=== PATIENT | male | born 1930 | race Caucasian/White ===

== ENCOUNTER 2017-10-31 12:34 | Inpatient (IN) ==
[2017-10-31] MEDS ORDERED: Tetanus/Diphtheria Toxoid Adult Vaccine Inj 0.5 ML Vial IM ONE (12:53)
[2017-10-31 13:33] LABS: Baso % (Auto) 0.3 % (0.0-2.0); Eos # (Auto) 0.1 th/mm3 (0.0-0.4); Eos % (Auto) 1.4 % (0.0-4.0); Hematocrit 34.3 % (39.0-51.0); Lymph # (Auto) 2.2 th/mm3 (1.0-4.8); Lymph % (Auto) 22.8 % (9.0-44.0); Mean Corpuscular HGB Conc 32.2 % (32.0-36.0); Mean Corpuscular Hemoglobin 21.6 pg (27.0-34.0); Mean Corpuscular Volume 67.1 fL (80.0-100.0); Mean Platelet Volume 9.1 fL (7.0-11.0); Mono # (Auto) 0.6 th/mm3 (0.0-0.9); Mono % (Auto) 6.6 % (0.0-8.0); Neut # (Auto) 6.6 th/mm3 (1.8-7.7); Neut % (Auto) 68.9 % (16.0-70.0); Platelet Count 195 th/mm3 (150-450); Red Blood Count 5.12 mil/mm3 (4.50-5.90); Red Cell Distribution Width 15.7 % (11.6-17.2); White Blood Count 9.5 th/mm3 (4.0-11.0)
[2017-10-31 13:48] LABS: Calcium 9.1 mg/dL (8.5-10.1); Carbon Dioxide 22.5 meq/L (21.0-32.0); Potassium 4.2 meq/L (3.5-5.1)
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
[2017-10-31 13:52] LABS: Activated Partial Thrombo Time 23.3 sec (24.3-30.1); INR 1.1 Ratio; Prothrombin Time 10.7 sec (9.8-11.6)
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
[2017-10-31] MEDS ORDERED: Morphine Inj 4 MG/ML Vial IV.PUSH ONE (14:34)
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
[2017-10-31] MEDS ORDERED: Naloxone Inj 0.4 MG/ML Vial IV.PUSH PRN (18:13)
[2017-10-31] MEDS ORDERED: Bisacodyl 10 MG Supp RECTAL PRN (18:13)
[2017-10-31] MEDS ORDERED: Post-op Orders (for Pharmacy) OTHER ONE (18:13)
[2017-10-31] MEDS ORDERED: Morphine Inj 4 MG/ML Vial IV.PUSH PRN (20:00)
[2017-10-31] MEDS: Sod Chloride 0.9% Inj 1,000 ML IV.CONT SCH (21:04)
[2017-10-31] MEDS: Senna/Docusate Sodium 8.6/50 MG Tablet PO SCH (21:05)
[2017-10-31] MEDS: Famotidine PF Inj 20 MG/2 ML Vial IV.PUSH SCH (21:05)
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
[2017-11-01 00:51] LABS: ABG Base Excess -2.6 mmol/L (-2-2); ABG PCO2 35 mmHg (38-42); ABG PO2 249 mmHg (61-120)
[2017-11-01 01:04] LABS: Baso % (Auto) 0.4 % (0.0-2.0); Eos # (Auto) 0.1 th/mm3 (0.0-0.4); Eos % (Auto) 1.4 % (0.0-4.0); Hemoglobin 8.1 gm/dL (13.0-17.0); Lymph % (Auto) 37.1 % (9.0-44.0); Mean Corpuscular HGB Conc 32.3 % (32.0-36.0); Mean Corpuscular Hemoglobin 21.9 pg (27.0-34.0); Mono # (Auto) 0.7 th/mm3 (0.0-0.9); Mono % (Auto) 6.8 % (0.0-8.0); Neut # (Auto) 5.8 th/mm3 (1.8-7.7); Neut % (Auto) 54.3 % (16.0-70.0); Platelet Count 52 th/mm3 (150-450); Red Blood Count 3.67 mil/mm3 (4.50-5.90); Red Cell Distribution Width 15.6 % (11.6-17.2); White Blood Count 10.7 th/mm3 (4.0-11.0)
[2017-11-01 01:15] LABS: Activated Partial Thrombo Time 39.7 sec (24.3-30.1); INR 1.4 Ratio; Prothrombin Time 14.3 sec (9.8-11.6)
[2017-11-01 01:24] LABS: Albumin 2.7 g/dL (3.4-5.0); Calcium 6.5 mg/dL (8.5-10.1); Carbon Dioxide 23.5 meq/L (21.0-32.0); Troponin I 0.02 ng/mL (0.02-0.05)
[2017-11-01 01:25] LABS: Potassium 4.8 meq/L (3.5-5.1)
[2017-11-01 01:44] LABS: Ovalocytes 1+
[2017-11-01 01:47] LABS: Acanthocytes Occ
[2017-11-01] MEDS ORDERED: Atropine Inj 1 MG/10 ML Syringe IV.PUSH ONE (05:00)
[2017-11-01] MEDS ORDERED: Dextrose 50% in Water 50 ML Vial IV.PUSH PRN (07:52)
[2017-11-01] MEDS: Famotidine PF Inj 20 MG/2 ML Vial IV.PUSH SCH ×2 (08:40→22:52)
[2017-11-01] MEDS: Ferrous Sulfate 325 MG Tablet PO SCH (08:41)
[2017-11-01] MEDS ORDERED: Metoprolol Tartrate 25 MG Tablet PO SCH (09:00)
[2017-11-01] MEDS: Sod Chloride 0.9% Inj 1,000 ML IV.CONT SCH (12:24)
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
[2017-11-01 15:55] LABS: Hematocrit 24.1 % (39.0-51.0); Hemoglobin 7.7 gm/dL (13.0-17.0); Mean Corpuscular Hemoglobin 21.6 pg (27.0-34.0); Mean Corpuscular Volume 67.6 fL (80.0-100.0); Mean Platelet Volume 9.5 fL (7.0-11.0); Platelet Count 164 th/mm3 (150-450); Red Blood Count 3.56 mil/mm3 (4.50-5.90); White Blood Count 6.9 th/mm3 (4.0-11.0)
--- NOTE | 2017-11-01 16:25 | MB ---
cc: Gianni Hewitt MD DATE: 11/01/2017 REASON FOR CONSULTATION: Evaluation of murmur and episode of bradycardia. HISTORY OF PRESENT ILLNESS: Richard Brink is an 87-year-old man who says his primary care physician is Dr. Dodd. I think he is [facility] and I contacted the staff comparative sociology professor who recommended I go ahead and see the patient. The patient had an episode this morning where they called a CODE 99. He had a drop in heart rate of 42 with drop in blood pressure to 83 and a drop in saturation of 86%. He quickly recovered after administration of oxygen and 1 dose of atropine. He has had no further episodes. The patient denies any anginal chest pain. The patient gets a pinch in the left chest lasting 20 seconds. It does not happen very often. He denies any shortness of breath or angina. He is physically quite sedentary. He does not do much walking. His back bothers him some. He has had previous back surgery a couple years ago. He has several cardiac risk factors including elevated cholesterol, diabetes, and hypertension. Denies known family history of coronary artery disease. SOCIAL HISTORY: He moved here from [place] in his 20s. 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 He is with 2 sons, 1 of 2 children, a son and a daughter and son is a accounting recruiter. REVIEW OF SYSTEMS: Notable for some intermittent acid reflux. No bleeding. No other problems. PAST SURGICAL HISTORY: Includes knee surgery, hernia surgery, surgery for kyphosis. ADDITIONAL PAST MEDICAL HISTORY: Asbestos exposure, hypertension, diabetes, high cholesterol. PHYSICAL EXAMINATION: GENERAL: Shows a well-developed, well-nourished man. He is alert, does not appear to be in acute distress. VITAL SIGNS: Charted. HEENT: Normocephalic. NECK: Shows no JVD. No bruits. CHEST: Clear to auscultation. CARDIOVASCULAR: Normal S1, S2. Regular rate and rhythm with an early to mid peaking aortic stenosis type murmur grade 2/6, going into the carotids. ABDOMEN: Soft. EXTREMITIES: He has some bandages from the knees down from apparently ankle and feet injuries. DATA: EKG shows sinus rhythm, right bundle branch block. No acute ST-T wave changes. Remaining labs are charted. Echo Doppler study showing LVH, mild to moderate aortic stenosis. This is similar to the previous echo. The right bundle branch block I sold similar to the old EKGs. IMPRESSION: The patient had an episode of low heart rate, low blood pressure. No saturation. I am not sure exactly what caused this episode, whether he had sleep apnea spell, whether this is reaction to the beta rakel. He is no longer demonstrating any of these signs. I think a surgical risk is elevated, but not prohibitive. I think it is reasonable to proceed if the surgery is badly needed. His LV function is preserved. Will hold the beta rakel though in view of having the bradycardia episode. Thank you very much for asking me to see this pleasant gentleman. MD YAMILETH Villegas/stacia , 02:21 PM , 02:29 PM
--- NOTE | 2017-11-01 16:44 | P.PNPOD ---
Subjective Interval history: Patient seen bedside with family present. Patient is resting comfortably, states pain is well controlled. Physical Exam Vital signs: Vital Signs 10/31/17 20:00 10/31/17 22:22 11/01/17 00:00 Temperature 97.8 F 97.6 F Pulse Rate 71 72 38 L Respiratory Rate 18 26 H Blood Pressure 159/78 H 127/59 L Pulse Oximetry 100 11/01/17 00:07 11/01/17 00:10 11/01/17 00:20 Temperature 97.2 F L Pulse Rate 59 L 81 Respiratory Rate 20 Blood Pressure 83/52 L 127/62 Pulse Oximetry 100 76 L 11/01/17 04:00 11/01/17 05:00 11/01/17 06:00 Temperature 97.8 F Pulse Rate 72 70 70 Respiratory Rate 25 H 23 22 Blood Pressure 130/59 L 118/56 L 118/56 L Pulse Oximetry 11/01/17 08:00 11/01/17 12:00 11/01/17 12:15 Temperature 98.1 F 98.1 F Pulse Rate 69 Respiratory Rate 18 18 Blood Pressure 135/60 135/68 Pulse Oximetry 96 96 97 Intake & Output 10/31/17 11/01/17 11/01/17 18:59 06:59 18:59 Intake Total 1000 / 1000 Output Total 120 / 120 Balance -120 / -120 1000 / 1000 Weight 83.915 kg 83.915 kg Intake: IV 1000 / 1000 NS Inj 1,000 ML @ 84 mls/hr IV. 1000 / 1000 CONT .[id number] [facility] Rx#:[id number] Output: Wound Drainage 120 / 120 Left Abdomen MARGY Drain 120 / 120 Other: # Voids 1 # Incontinent Voids 1 Date of Last Bowel Movement 10/31/17 10/31/17 Weight On Admission 83.915 kg Narrative: Bilateral posterior splint intact. Capillary refill time to digits 10. No reported calf pain. Medications and Allergies Active Medications: Active Medications Al Hydroxide/Mg Hydroxide (Milk Of Magnshannon Liq) 30 ml PO Q12H PRN PRN Reason: Mild Constipation Albuterol (Duoneb Neb (Prn)) 1 ampul NEB Q2HR NEB PRN PRN Reason: SHORTNESS OF BREATH/WHEEZING Bisacodyl (Dulcolax Supp) 10 mg RECTAL DAILY PRN PRN Reason: SEVERE CONSITIPATION Dextrose (D50w Vial) 50 ml IV.PUSH UNSCH PRN PRN Reason: PER HYPOGLYCEMIA PROTOCOL Famotidine (Pepcid Pf Inj) 10 mg IV.PUSH Q12HR [facility] Ferrous Sulfate (Ferosul) 325 mg PO DAILY [facility] Last Admin: 11/01/17 08:41 Dose: 325 mg Glucagon (Glucagon Inj) 1 mg OTHER PRN PRN PRN Reason: for Hypoglycemia Protocol Cefazolin Sodium 1,000 mg/ (Sodium Chloride) 100 mls @ 200 mls/hr IV.SIG 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 [facility] Sodium Chloride (Ns Inj) 1,000 mls @ 84 mls/hr IV.CONT .[id number] [facility] Last Admin: 11/01/17 12:24 Dose: 75 mls/hr Acetaminophen (Ofirmev Inj) 1,000 mg in 100 mls @ 400 mls/hr IV.SIG Q6H PRN PRN Reason: Pain 3-10 Stop: 11/02/17 05:14 Insulin Human Regular (Novolin R Correctional Sugar Inj) 0 units SQ ACHS [facility]; Protocol Lactulose (Lactulose Liq) 30 ml PO DAILY PRN PRN Reason: SEVERE CONSITIPATION Losartan Potassium (Cozaar) 100 mg PO DAILY [facility] Last Admin: 11/01/17 08:40 Dose: 100 mg Metoprolol Tartrate (Lopressor) 25 mg PO Q12HR [facility] Last Admin: 11/01/17 08:41 Dose: 25 mg Naloxone HCl (Narcan Inj) 0.4 mg IV.PUSH UNSCH PRN PRN Reason: SEE LABEL COMMENTS Ondansetron HCl (Zofran Inj) 4 mg IV.PUSH Q6H PRN PRN Reason: NAUSEA OR VOMITING Pravastatin Sodium (Pravachol) 80 mg PO [facility] Senna/Docusate Sodium (Debora-Colace) 1 tab PO BID [facility] Last Admin: 10/31/17 21:05 Dose: 1 tab Sennosides (Senokot) 17.2 mg PO Q12H PRN PRN Reason: Moderate Constipation Allergies Allergy/AdvReac Type Severity Reaction Status Date / Time No Known Allergies Allergy Unverified 10/31/17 12:59 Home Medications Medication Instructions Recorded Confirmed Type Aleve 220 mg PO 10/31/17 History ferrous sulfate 325 mg PO DAILY 10/31/17 10/31/17 History losartan 100 mg PO DAILY 10/31/17 10/31/17 History metformin 1,000 mg PO BID 10/31/17 10/31/17 History metoprolol tartrate 25 mg PO Q12HR 10/31/17 10/31/17 History simvastatin 40 mg PO HS 10/31/17 10/31/17 History Results - Labs CBC & Chem 7: 11/01/17 14:50 11/01/17 00:35 Laboratory Results - last 24 hr 10/31/17 11/01/17 11/01/17 20:33 00:12 00:35 WBC 10.7 RBC 3.67 L Hgb 8.1 L D Hct 25.0 L MCV 68.0 L MCH 21.9 L MCHC 32.3 RDW 15.6 Plt Count 52 L D MPV 9.0 Prelim Diff (Auto) Slide review pending Neut % (Auto) 54.3 Lymph % (Auto) 37.1 Gallia % (Auto) 6.8 Eos % (Auto) 1.4 Baso % (Auto) 0.4 Neut # (Auto) 5.8 Lymph # (Auto) 4.0 Gallia # (Auto) 0.7 Eos # (Auto) 0.1 Baso # (Auto) 0.0 WBC Differential . Diff Scan Auto diff confirmed Differential Comment . Platelet Estimate Low L Platelet Morphology Enlarged H Ovalocytes 1+ H Acanthocytes (Spur) Occ H PT INR APTT Puncture Site Patient Temperature O2 Saturation ABG pH ABG pCO2 ABG pO2 ABG HCO3 ABG O2 Content ABG Base Excess ABG Methemoglobin Jesus Test Hemoglobin Carboxyhemoglobin O2 Delivery Device Liter Flow Inspired O2 Critical Value Sodium Potassium Chloride Carbon Dioxide Anion Gap BUN Creatinine Estimated GFR POC Glucose 127 H 192 H Random Glucose Calcium Prot Corrected Calcium Total Bilirubin AST ALT Alkaline Phosphatase Troponin I Total Protein Albumin 11/01/17 11/01/17 11/01/17 00:35 00:35 00:38 WBC RBC Hgb Hct MCV MCH MCHC RDW Plt Count MPV Prelim Diff (Auto) Neut % (Auto) Lymph % (Auto) Gallia % (Auto) Eos % (Auto) Baso % (Auto) Neut # (Auto) Lymph # (Auto) Gall[place] # (Auto) Eos # (Auto) Baso # (Auto) WBC Differential Diff Scan Differential Comment Platelet Estimate Platelet Morphology Ovalocytes Acanthocytes (Spur) PT 14.3 H INR 1.4 APTT 39.7 H D Puncture Site Right radial Patient Temperature 98.6 O2 Saturation 97 ABG pH 7.41 ABG pCO2 35 L ABG pO2 249 H ABG HCO3 21 L ABG O2 Content 11.0 L ABG Base Excess -2.6 L ABG Methemoglobin 1.2 Jesus Test Present Hemoglobin 7.6 L Carboxyhemoglobin 1.3 O2 Delivery Device None rebreather Liter Flow 15.00 Inspired O2 100 Critical Value No Sodium 145 Potassium 4.8 Chloride 113 H Carbon Dioxide 23.5 Anion Gap 9 BUN 23 H Creatinine 1.28 Estimated GFR 53 L POC Glucose Random Glucose 163 H Calcium 6.5 L* D Prot Corrected Calcium 7.5 L Total Bilirubin 0.9 AST 34 ALT 15 Alkaline Phosphatase 46 Troponin I 0.02 Total Protein 5.0 L Albumin 2.7 L 11/01/17 11/01/17 09:42 14:50 WBC 6.9 RBC 3.56 L Hgb 7.7 L Hct 24.1 L MCV 67.6 L MCH 21.6 L MCHC 32.0 RDW 16.0 Plt Count 164 D MPV 9.5 Prelim Diff (Auto) Neut % (Auto) Lymph % (Auto) Gall[place] % (Auto) Eos % (Auto) Baso % (Auto) Neut # (Auto) Lymph # (Auto) Gall[place] # (Auto) Eos # (Auto) Baso # (Auto) WBC Differential Diff Scan Differential Comment Platelet Estimate Platelet Morphology Ovalocytes Acanthocytes (Spur) PT INR APTT Puncture Site Patient Temperature O2 Saturation ABG pH ABG pCO2 ABG pO2 ABG HCO3 ABG O2 Content ABG Base Excess ABG Methemoglobin Jesus Test Hemoglobin Carboxyhemoglobin O2 Delivery Device Liter Flow Inspired O2 Critical Value Sodium Potassium Chloride Carbon Dioxide Anion Gap BUN Creatinine Estimated GFR POC Glucose 164 H Random Glucose Calcium Prot Corrected Calcium Total Bilirubin AST ALT Alkaline Phosphatase Troponin I Total Protein Albumin - Imaging Impressions Ankle CT 10/31/17 00:00 CONCLUSION: 1. Mildly comminuted nondisplaced fracture through the medial malleolus. 2. Osteopenia. Assessment and Plan - Plan 87-year-old male with right foot Lisfranc fracture and left ankle medial malleolar fracture Discussed all alternatives risks benefits complications associated with open reduction internal fixation of right foot and open reduction internal fixation of left ankle with patient and family present Discussed with patient he will be nonweightbearing to bilateral lower extremity following surgery Patient would like to proceed with surgical intervention, family is in agreement To OR tomorrow for right foot Lisfranc open reduction internal fixation and left ankle medial malleolar open reduction internal fixation
[2017-11-01] MEDS: Insulin NovoLIN Regular Correctional Sugar Inj SQ SCH (17:51)
[2017-11-01] MEDS: Senna/Docusate Sodium 8.6/50 MG Tablet PO SCH (17:52)
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
[2017-11-01] MEDS ORDERED: Sodium Chlor 0.9% Inj 250 ML IV.SIG SCH (19:00)
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
--- NOTE | 2017-11-02 00:44 | ECHRPT ---
Indication: CONCLUSIONS The left ventricular systolic function is hyperdynamic with an estimated ejection fraction in the ra nge of 65- 70%. Normal left ventricular size. Moderate concentric left ventricular hypertrophy. No regional wall motion abnormalities are present. Diffuse calcification of the aortic valve. Mild aortic valve regurgitation. Moderate aortic valve stenosis. Aortic valve area is 0.9 cm. Aortic valve mean gradient is 24.5 mmHg. There is trace tricuspid valve regurgitation. The estimated pulmonary arterial pressure is 25.1 mmHg. BP: / HR: Rhythm: Sinus MEASUREMENTS (Male / Female) Normal Values Technical Quality:Fair 2D ECHO LV Diastolic Diameter PLAX 4.3 cm 4.2 - 5.9 / 3.9 - 5.3 cm LV Systolic Diameter PLAX 2.5 cm IVS Diastolic Thickness 1.6 cm 0.6 - 1.0 / 0.6 - 0.9 cm LVPW Diastolic Thickness 1.6 cm 0.6 - 1.0 / 0.6 - 0.9 cm LV Relative Wall Thickness 0.7 RV Internal Dim ED PLAX 2.7 cm LVOT Diameter 1.8 cm LA Systolic Diameter LX 3.8 cm 3.0 - 4.0 / 2.7 - 3.8 cm M-MODE Aortic Root Diameter MM 2.4 cm LA Systolic Diameter MM 3.9 cm LA Ao Ratio MM 1.6 AV Cusp Separation MM 0.9 cm DOPPLER AV Peak Velocity 363.0 cm/s AV Peak Gradient 52.7 mmHg AV Mean Gradient 24.5 mmHg AV Velocity Time Integral 59.9 cm AI Peak Velocity 329.0 cm/s AI Peak Gradient 43.3 mmHg AI Pressure Half Time 564.5 ms LVOT Peak Velocity 119.0 cm/s LVOT Peak Gradient 5.7 mmHg LVOT Velocity Time Integral 21.1 cm AV Area Cont Eq vti 0.9 cm AV Area Cont Eq pk 0.8 cm MV Area PHT 2.2 cm Mitral E Point Velocity 61.7 cm/s Mitral A Point Velocity 78.5 cm/s Mitral E to A Ratio 0.8 LV E' Lateral Velocity 4.6 cm/s Mitral E to LV E' Lateral Ratio 13.5 LV E' Septal Velocity 4.3 cm/s Mitral E to LV E' Septal Ratio 14.4 TR Peak Velocity 194.0 cm/s TR Peak Gradient 15.1 mmHg Right Atrial Pressure 10.0 mmHg Pulmonary Artery Systolic Pressu 25.1 mmHg Right Ventricular Systolic Press 25.1 mmHg FINDINGS LEFT VENTRICLE The left ventricular systolic function is hyperdynamic with an estimated ejection fraction in the ra nge of 65- 70%. Normal left ventricular size. Moderate concentric left ventricular hypertrophy. No regional wall motion abnormalities are present. RIGHT VENTRICLE Normal right ventricular size and systolic function. LEFT ATRIUM The left atrial size is normal. RIGHT ATRIUM The right atrial size is normal. ATRIAL SEPTUM Normal atrial septal thickness without atrial level shunting by limited color doppler interrogation. AORTA The aortic root and proximal ascending aorta are normal in size on limited imaging. MITRAL VALVE Structurally normal mitral valve. No mitral valve stenosis or regurgitation. AORTIC VALVE Trileaflet aortic valve. Diffuse calcification of the aortic valve. Mild aortic valve regurgitation. [id number] (at most moderate) aortic valve stenosis. Aortic valve area is 0.9 cm. Aortic valve mean gradient is 24.5 mmHg. TRICUSPID VALVE Structurally normal tricuspid valve. There is trace tricuspid valve regurgitation. The estimated pulmonary arterial pressure is 25.1 mmHg. PULMONARY VALVE No pulmonary valve regurgitation or stenosis. VESSELS The inferior vena cava is normal in size. PERICARDIUM No pericardial effusion. Gianni Hewitt MD Edited by: records administrator records administrator (Electronically Signed) Final Date:01 November 2017 14:51 Amended: 02 November 2017 00:35
[2017-11-02 05:25] LABS: Baso # (Auto) 0.1 th/mm3 (0.0-0.2); Baso % (Auto) 0.8 % (0.0-2.0); Eos # (Auto) 0.4 th/mm3 (0.0-0.4); Hematocrit 30.9 % (39.0-51.0); Hemoglobin 10.2 gm/dL (13.0-17.0); Lymph # (Auto) 1.8 th/mm3 (1.0-4.8); Lymph % (Auto) 20.4 % (9.0-44.0); Mean Corpuscular HGB Conc 33.1 % (32.0-36.0); Mean Corpuscular Hemoglobin 23.6 pg (27.0-34.0); Mean Corpuscular Volume 71.3 fL (80.0-100.0); Mean Platelet Volume 8.8 fL (7.0-11.0); Mono # (Auto) 0.7 th/mm3 (0.0-0.9); Mono % (Auto) 8.3 % (0.0-8.0); Neut # (Auto) 5.7 th/mm3 (1.8-7.7); Neut % (Auto) 65.5 % (16.0-70.0); Platelet Count 162 th/mm3 (150-450); Red Blood Count 4.34 mil/mm3 (4.50-5.90); Red Cell Distribution Width 19.9 % (11.6-17.2); White Blood Count 8.7 th/mm3 (4.0-11.0)
[2017-11-02 05:53] LABS: Calcium 8.3 mg/dL (8.5-10.1); Carbon Dioxide 24.5 meq/L (21.0-32.0); Potassium 3.8 meq/L (3.5-5.1)
[2017-11-02] MEDS: Insulin NovoLIN Regular Correctional Sugar Inj SQ SCH ×6 (07:56→21:08)
[2017-11-02] MEDS: Senna/Docusate Sodium 8.6/50 MG Tablet PO SCH ×3 (07:57→20:10)
[2017-11-02] MEDS: Sod Chloride 0.9% Inj 1,000 ML IV.CONT SCH ×2 (08:32→08:34)
[2017-11-02] MEDS: Famotidine PF Inj 20 MG/2 ML Vial IV.PUSH SCH ×2 (08:34→20:10)
[2017-11-02] MEDS: Ferrous Sulfate 325 MG Tablet PO SCH (08:34)
[2017-11-02] MEDS ORDERED: Lidocaine PF 1% Inj 5 ML Syringe INFILTRATN ONE (09:37)
[2017-11-02] MEDS ORDERED: Phenylephrine/NS 1000 MCG/10ML Syringe IV.PUSH ONE (09:37)
[2017-11-02] MEDS ORDERED: Sodium Chlor 0.9% Inj 250 ML IV.SIG ONE (09:37)
--- NOTE | 2017-11-02 09:39 | P.PNPOD ---
Subjective Interval history: Patient seen preoperatively with family present bedside. Patient and family understands planned procedure to bilateral foot. Physical Exam Vital signs: Vital Signs 11/01/17 12:00 11/01/17 12:15 11/01/17 16:00 Temperature 98.1 F 98 F Pulse Rate Respiratory Rate 18 18 Blood Pressure 135/68 147/68 H Pulse Oximetry 96 97 11/01/17 20:00 11/01/17 23:07 11/02/17 00:00 Temperature 98.8 F 98.5 F 98.2 F Pulse Rate 80 81 74 Respiratory Rate 22 18 20 Blood Pressure 153/69 H 170/77 H 165/72 H Pulse Oximetry 93 L 97 11/02/17 01:38 11/02/17 01:41 11/02/17 04:00 Temperature 98.2 F 98.0 F Pulse Rate 69 69 68 Respiratory Rate 24 22 Blood Pressure 150/67 H 150/67 H 179/79 H Pulse Oximetry 11/02/17 07:57 Temperature Pulse Rate Respiratory Rate 2 L Blood Pressure Pulse Oximetry Intake & Output 11/01/17 11/02/17 11/02/17 18:59 06:59 18:59 Intake Total 1200 / 1200 1030 / 1030 Output Total 400 / 400 200 / 200 Balance 800 / 800 830 / 830 Weight 86.9 kg Intake: IV 1000 / 1000 1000 / 1000 NS Inj 1,000 ML @ 84 mls/hr IV. 1000 / 1000 1000 / 1000 CONT .[id number] [facility] Rx#:[id number] Oral 200 / 200 30 / 30 Intake (Blood Product) Amt 0 / 0 Rbc As-3 Leukoreduced Unit 0 / 0 [id number] Rbc As-3 Leukoreduced Unit 0 / 0 [id number] Output: Urine 400 / 400 200 / 200 Other: Date of Last Bowel Movement 10/31/17 11/01/17 Narrative: Bilateral posterior splint intact. Capillary refill time to digits 10. No reported calf pain. Medications and Allergies Active Medications: Active Medications Al Hydroxide/Mg Hydroxide (Milk Of Magnshannon Liq) 30 ml PO Q12H PRN PRN Reason: Mild Constipation Albuterol (Duoneb Neb (Prn)) 1 ampul NEB Q2HR NEB PRN PRN Reason: SHORTNESS OF BREATH/WHEEZING Bisacodyl (Dulcolax Supp) 10 mg RECTAL DAILY PRN PRN Reason: SEVERE CONSITIPATION Dextrose (D50w Vial) 50 ml IV.PUSH UNSCH PRN PRN Reason: PER HYPOGLYCEMIA PROTOCOL Famotidine (Pepcid Pf Inj) 10 mg IV.PUSH Q12HR [facility] Last Admin: 11/02/17 08:34 Dose: 10 mg Ferrous Sulfate (Ferosul) 325 mg PO DAILY [facility] Last Admin: 11/02/17 08:34 Dose: Not Given Glucagon (Glucagon Inj) 1 mg OTHER PRN PRN PRN Reason: for Hypoglycemia Protocol Cefazolin Sodium 1,000 mg/ (Sodium Chloride) 100 mls @ 200 mls/hr IV.SIG BLUEPRINT DUPLICATOR [facility] Sodium Chloride (Ns Inj) 1,000 mls @ 84 mls/hr IV.CONT .[id number] [facility] Last Admin: 11/02/17 08:34 Dose: 75 mls/hr Sodium Chloride (Ns Inj) 250 mls @ 15 mls/hr IV.SIG ONCE [facility] Stop: 11/02/17 11:39 Last Admin: 11/01/17 22:53 Dose: 15 mls/hr Insulin Human Regular (Novolin R Correctional Sugar Inj) 0 units SQ ACHS [facility]; Protocol Last Admin: 11/02/17 08:32 Dose: Not Given Lactulose (Lactulose Liq) 30 ml PO DAILY PRN PRN Reason: SEVERE CONSITIPATION Losartan Potassium (Cozaar) 100 mg PO DAILY [facility] Last Admin: 11/02/17 08:33 Dose: 100 mg Metoprolol Tartrate (Lopressor) 25 mg PO Q12HR [facility] Last Admin: 11/01/17 08:41 Dose: 25 mg Naloxone HCl (Narcan Inj) 0.4 mg IV.PUSH UNSCH PRN PRN Reason: SEE LABEL COMMENTS Ondansetron HCl (Zofran Inj) 4 mg IV.PUSH Q6H PRN PRN Reason: NAUSEA OR VOMITING Pravastatin Sodium (Pravachol) 80 mg PO HS [facility] Last Admin: 11/01/17 22:53 Dose: 80 mg Senna/Docusate Sodium (Debora-Colace) 1 tab PO BID [facility] Last Admin: 11/02/17 08:34 Dose: Not Given Sennosides (Senokot) 17.2 mg PO Q12H PRN PRN Reason: Moderate Constipation Allergies Allergy/AdvReac Type Severity Reaction Status Date / Time No Known Allergies Allergy Unverified 10/31/17 12:59 Home Medications Medication Instructions Recorded Confirmed Type Aleve 220 mg PO 10/31/17 History ferrous sulfate 325 mg PO DAILY 10/31/17 10/31/17 History losartan 100 mg PO DAILY 10/31/17 10/31/17 History metformin 1,000 mg PO BID 10/31/17 10/31/17 History metoprolol tartrate 25 mg PO Q12HR 10/31/17 10/31/17 History simvastatin 40 mg PO HS 10/31/17 10/31/17 History Results - Labs CBC & Chem 7: 11/02/17 05:09 11/02/17 05:09 Laboratory Results - last 24 hr 11/01/17 11/01/17 11/01/17 09:42 14:50 17:14 WBC 6.9 RBC 3.56 L Hgb 7.7 L Hct 24.1 L MCV 67.6 L MCH 21.6 L MCHC 32.0 RDW 16.0 Plt Count 164 D MPV 9.5 Neut % (Auto) Lymph % (Auto) Gila % (Auto) Eos % (Auto) Baso % (Auto) Neut # (Auto) Lymph # (Auto) Gila # (Auto) Eos # (Auto) Baso # (Auto) WBC Differential Differential Comment Sodium Potassium Chloride Carbon Dioxide Anion Gap BUN Creatinine Estimated GFR POC Glucose 164 H 121 H Random Glucose Calcium Blood Type Blood Type Recheck Antibody Screen MTS Gel Crossmatch Bld Prod Order Comment 11/01/17 11/01/17 11/02/17 20:39 23:01 05:09 WBC 8.7 RBC 4.34 L Hgb 10.2 L D Hct 30.9 L MCV 71.3 L D MCH 23.6 L MCHC 33.1 RDW 19.9 H D Plt Count 162 MPV 8.8 Neut % (Auto) 65.5 Lymph % (Auto) 20.4 Gila % (Auto) 8.3 H Eos % (Auto) 5.0 H Baso % (Auto) 0.8 Neut # (Auto) 5.7 Lymph # (Auto) 1.8 Gila # (Auto) 0.7 Eos # (Auto) 0.4 Baso # (Auto) 0.1 WBC Differential . Differential Comment Auto diff final Sodium Potassium Chloride Carbon Dioxide Anion Gap BUN Creatinine Estimated GFR POC Glucose 208 H Random Glucose Calcium Blood Type O Positive Blood Type Recheck Antibody Screen Negative MTS Gel Crossmatch See Detail Bld Prod Order Comment 11/02/17 11/02/17 05:09 08:52 WBC RBC Hgb Hct MCV MCH MCHC RDW Plt Count MPV Neut % (Auto) Lymph % (Auto) Gila % (Auto) Eos % (Auto) Baso % (Auto) Neut # (Auto) Lymph # (Auto) Gila # (Auto) Eos # (Auto) Baso # (Auto) WBC Differential Differential Comment Sodium 144 Potassium 3.8 D Chloride 110 H Carbon Dioxide 24.5 Anion Gap 10 BUN 23 H Creatinine 1.27 Estimated GFR 54 L POC Glucose 147 H Random Glucose 134 H Calcium 8.3 L D Blood Type Blood Type Recheck Antibody Screen MTS Gel Crossmatch Bld Prod Order Comment - Imaging Impressions Chest X-Ray 11/02/17 00:00 CONCLUSION: Increased density at the left base likely related to a combination of effusion, atelectasis and/or consolidation. This was present previously. Assessment and Plan - Plan 87-year-old male with right foot Lisfranc fracture and left ankle medial malleolar fracture Discussed all alternatives risks benefits complications associated with open reduction internal fixation of right foot and open reduction internal fixation of left ankle with patient and family present Discussed with patient he will be nonweightbearing to bilateral lower extremity following surgery Patient would like to proceed with surgical intervention, family is in agreement To OR today for right foot Lisfranc open reduction internal fixation versus primary fusion of lisfrancs joint and left ankle medial malleolar open reduction internal fixation Consent signed
[2017-11-02] MEDS ORDERED: Bupivacaine PF 0.25% Inj 30 ML Vial ONE (10:15)
[2017-11-02] MEDS ORDERED: Bupivacaine PF 0.25% Inj 30 ML Vial INFILTRATN ONE (11:53)
[2017-11-02] MEDS ORDERED: fentaNYL Citrate Inj 100 MCG/2 ML Ampul ONE (12:33)
--- NOTE | 2017-11-02 12:37 | P.PCN ---
Date of procedure: 11/02/17 Pre-op diagnosis: Right foot Lisfranc fracture, left ankle medial malleolar fracture Procedure: Right foot open reduction internal fixation of Lisfranc fracture, second metatarsal base fracture Left ankle fracture open reduction internal fixation, medial malleolar fracture Anesthesia: VIVIANEA Surgeon: Ann Boudreaux Estimated blood loss (mL): 10 Pathology: none sent Condition: stable Disposition: PACU (To PACU with vital signs stable and neurovascular status intact to bilateral foot)
--- NOTE | 2017-11-02 12:37 | XR ---
EXAM DATE: 11/02/2017 12:22 PM EDT AGE/SEX: 87 years / Male INDICATIONS: ORIF left ankle. CLINICAL DATA: This is the patient's initial encounter. Patient reports that signs and symptoms have been present for 1 day and indicates a pain score of Nonresponsive. MEDICAL/SURGICAL HISTORY: . Hypertension. Diabetes mellitus type II . Inguinal hernia repair. [place]: [facility] [place] 3[place], [place]/31/2017. [facility] [place]/O [place]AST, [place]. . FINDINGS: 2 spot fluoroscopic images obtained in the operating room during a procedure demonstrates 2 oblique p artially threaded cannulated screws traversing the medial malleolus and distal tibial metaphysis. Fra cture line remains visualized anteriorly on the lateral projection. There is soft tissue swelling. CONCLUSION: Spot fluoroscopic images obtained during medial malleolus ORIF. Electronically signed by: Mio Mo MD 11/02/2017 12:36 PM EDT
[2017-11-02] MEDS ORDERED: Post-op Orders (for Pharmacy) OTHER STA (12:38)
--- NOTE | 2017-11-02 12:39 | XR ---
EXAM DATE: 11/02/2017 12:25 PM EDT AGE/SEX: 87 years / Male INDICATIONS: ORIF right foot. CLINICAL DATA: This is the patient's initial encounter. Patient reports that signs and symptoms have been present for 1 day and indicates a pain score of Nonresponsive. MEDICAL/SURGICAL HISTORY: . Hypertension. Diabetes mellitus type II. . Inguinal hernia repair . COMPARISON: [facility] – [place], FOOT COMPLETE RIGHT 3V, 10/31/2017. . FINDINGS: AP and lateral views of the right foot demonstrate a dorsal sideplate with interlocking screws paul sing the middle cuneiform and proximal second metatarsal. An oblique partially threaded cannulated sc rew traverses the medial cuneiform and proximal second and third metatarsal. There is improved alignm ent. CONCLUSION: Spot fluoroscopic images obtained during right foot ORIF, as above. Electronically signed by: Mio Mo MD 11/02/2017 12:38 PM EDT
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
[2017-11-02] MEDS ORDERED: *Enalaprilat Inj 1.25 MG/ML Vial IV.PUSH ONE (13:20)
[2017-11-02] MEDS ORDERED: Labetalol HCl Inj 100 MG/20 ML Vial ONE (13:25)
--- NOTE | 2017-11-02 13:48 | XR ---
EXAM DATE: 11/02/2017 1:42 PM EDT AGE/SEX: 87 years / Male INDICATIONS: Right foot post surgery CLINICAL DATA: This is the patient's subsequent encounter. Patient reports that signs and symptoms h ave been present for 2 days and indicates a pain score of Nonresponsive. MEDICAL/SURGICAL HISTORY: . Hypertension. Diabetes mellitus type II. . Inguinal hernia repair. None. COMPAR[place]: [facility] [place], 10/31/2017. [facility] [place]OT [place] RIGHT 2V, 8. [facility] [place] COM[place]TE RIGHT 3V, 10/31/2017. . FINDINGS: 4 views of the right foot following ORIF and splinting demonstrates a dorsal sideplate with interlock ing screws traversing the second tarsometatarsal joint and an oblique partially threaded cannulated s crew traversing the medial cuneiform and second metatarsal proximally. There is soft tissue swelling posteriorly. Improved anatomic alignment is present compared to the preoperative examination. No unex pected radiopaque foreign body is identified. CONCLUSION: Improved alignment following ORIF of the right foot, as above. Electronically signed by: Mio Mo MD 11/02/2017 1:47 PM EDT
--- NOTE | 2017-11-02 13:50 | XR ---
EXAM DATE: 11/02/2017 1:40 PM EDT AGE/SEX: 87 years / Male INDICATIONS: Right ankle post surgery CLINICAL DATA: This is the patient's subsequent encounter. Patient reports that signs and symptoms h ave been present for 2 days and indicates a pain score of Nonresponsive. MEDICAL/SURGICAL HISTORY: . Hypertension. Diabetes mellitus type II. . Inguinal hernia repair. None. COMPARISON: [facility] – [place], [place], FOOT LIMITED RIGHT 2V, 11/02/2017. . FINDINGS: Plate and screw fixation hardware noted traversing the middle cuneiform and proximal second metatarsa l. There is also an obliquely oriented compression screw traversing the medial cuneiform and proximal second and third metatarsals. Hardware appears intact. Bony structures are otherwise intact and in n ormal alignment. Joints are intact without dislocation. Osseous density is normal for age. Postsurg ical soft tissue changes. CONCLUSION: 1. Midfoot ORIF, as above. 2. No acute ankle fracture or dislocation. Electronically signed by: Tobi Adams MD 11/02/2017 1:49 PM EDT
--- NOTE | 2017-11-02 14:55 | P.PNCA ---
Subjective Interval history: No angina or SOB Physical Exam Vital signs: Vital Signs 11/01/17 16:00 11/01/17 20:00 11/01/17 23:07 Temperature 98 F 98.8 F 98.5 F Pulse Rate 80 81 Respiratory Rate 18 22 18 Blood Pressure 147/68 H 153/69 H 170/77 H Pulse Oximetry 93 L 97 11/02/17 00:00 11/02/17 01:38 11/02/17 01:41 Temperature 98.2 F 98.2 F Pulse Rate 74 69 69 Respiratory Rate 20 24 22 Blood Pressure 165/72 H 150/67 H 150/67 H Pulse Oximetry 11/02/17 04:00 11/02/17 07:57 11/02/17 12:27 Temperature 98.0 F 97.9 F Pulse Rate 68 86 Respiratory Rate 2 L 16 Blood Pressure 179/79 H 167/76 H Pulse Oximetry 96 11/02/17 12:30 11/02/17 12:45 11/02/17 13:00 Temperature Pulse Rate 84 76 80 Respiratory Rate 16 16 16 Blood Pressure 157/68 H 177/79 H 169/78 H Pulse Oximetry 94 L 95 95 11/02/17 13:15 11/02/17 13:30 Temperature Pulse Rate 76 70 Respiratory Rate 16 16 Blood Pressure 175/85 H 155/72 H Pulse Oximetry 97 98 Intake & Output 11/01/17 11/02/17 11/02/17 18:59 06:59 18:59 Intake Total 1200 / 1200 1030 / 1030 900 / 900 Output Total 400 / 400 200 / 200 10 / 10 Balance 800 / 800 830 / 830 890 / 890 Weight 86.9 kg Intake: IV 1000 / 1000 1000 / 1000 NS Inj 1,000 ML @ 84 mls/hr IV. 1000 / 1000 1000 / 1000 CONT .[id number] [facility] Rx#:[id number] Oral 200 / 200 30 / 30 Anesthesia Amount 900 / 900 Intake (Blood Product) Amt 0 / 0 Rbc As-3 Leukoreduced Unit 0 / 0 [id number] Rbc As-3 Leukoreduced Unit 0 / 0 [id number] Output: Urine 400 / 400 200 / 200 Estimated Blood Loss 10 Other: Date of Last Bowel Movement 10/31/17 11/01/17 Tele NSR alert No JVD Chest clear S1S2 RRR with mild-mod M abd soft Assessment and Plan - Assessment (1) Aortic stenosis Code(s): I35.0 - Nonrheumatic aortic (valve) stenosis Status: Acute Plan: Tolerated surgery OK. I will see prn. Please call if questions.
--- NOTE | 2017-11-02 16:18 | ECG ---
Date Performed: 11/01/2017 Time Performed: 14:20:58 PTAGE: 87 years EKG: Sinus rhythm . Right bundle branch block Inferior/lateral ST-T changes are nonspecific Abnormal ECG Since PREVIOUS TRACING , no significant change noted PREVIOUS TRACIN06/21/2015 09.19 DOCTOR: Maurice Regan Interpretating Date/Time 11/02/2017 16:17:28
[2017-11-02] MEDS: Gabapentin 300 MG Capsule PO SCH (17:48)
[2017-11-02] MEDS: Heparin - SQ 10,000 UNITS/ML Vial SQ SCH (20:10)
[2017-11-03] MEDS: Sod Chloride 0.9% Inj 1,000 ML IV.CONT SCH ×3 (02:23→21:39)
[2017-11-03] MEDS: Heparin - SQ 10,000 UNITS/ML Vial SQ SCH ×3 (06:00→21:18)
[2017-11-03 06:06] LABS: Baso % (Auto) 0.3 % (0.0-2.0); Eos # (Auto) 0.4 th/mm3 (0.0-0.4); Eos % (Auto) 4.1 % (0.0-4.0); Hematocrit 25.3 % (39.0-51.0); Hemoglobin 8.6 gm/dL (13.0-17.0); Lymph # (Auto) 1.5 th/mm3 (1.0-4.8); Lymph % (Auto) 17.5 % (9.0-44.0); Mean Corpuscular HGB Conc 33.7 % (32.0-36.0); Mean Corpuscular Hemoglobin 24.3 pg (27.0-34.0); Mean Platelet Volume 8.7 fL (7.0-11.0); Mono # (Auto) 0.8 th/mm3 (0.0-0.9); Mono % (Auto) 9.2 % (0.0-8.0); Neut # (Auto) 6.1 th/mm3 (1.8-7.7); Neut % (Auto) 68.9 % (16.0-70.0); Platelet Count 147 th/mm3 (150-450); Red Blood Count 3.52 mil/mm3 (4.50-5.90); Red Cell Distribution Width 18.9 % (11.6-17.2); White Blood Count 8.8 th/mm3 (4.0-11.0)
[2017-11-03 06:18] LABS: Calcium 8.1 mg/dL (8.5-10.1); Carbon Dioxide 24.8 meq/L (21.0-32.0); Potassium 3.9 meq/L (3.5-5.1)
--- NOTE | 2017-11-03 08:50 | P.PNPOD ---
Subjective Interval history: Currently the patient is having mild right foot pain no acute distress seen bedside with family Physical Exam Vital signs: Vital Signs 11/02/17 09:00 11/02/17 12:27 11/02/17 12:30 Temperature 97.9 F Pulse Rate 75 86 84 Respiratory Rate 16 16 Blood Pressure 167/76 H 157/68 H Pulse Oximetry 96 94 L 11/02/17 12:45 11/02/17 13:00 11/02/17 13:15 Temperature Pulse Rate 76 80 76 Respiratory Rate 16 16 16 Blood Pressure 177/79 H 169/78 H 175/85 H Pulse Oximetry 95 95 97 11/02/17 13:30 11/02/17 16:00 11/02/17 20:00 Temperature 98.5 F 97.9 F Pulse Rate 70 68 78 Respiratory Rate 16 20 28 H Blood Pressure 155/72 H 127/58 L 147/68 H Pulse Oximetry 98 100 99 11/03/17 00:00 11/03/17 04:00 11/03/17 04:06 Temperature 98.5 F 100.1 F H Pulse Rate 74 92 H Respiratory Rate 34 H 26 H 22 Blood Pressure 152/72 H 140/61 Pulse Oximetry 97 95 Intake & Output 11/02/17 11/03/17 11/03/17 18:59 06:59 18:59 Intake Total 1240 / 1240 1290 / 1290 350 / 350 Output Total 860 / 860 425 / 425 Balance 380 / 380 865 / 865 350 / 350 Weight 87.7 kg Intake: IV 100 / 100 1050 / 1050 350 / 350 NS Inj 1,000 ML @ 84 mls/hr IV. 950 / 950 CONT .[id number] [facility] Rx#:[id number] Ofirmev Inj 1,000 mg In 100 ml 100 / 100 100 / 100 @ 400 mls/hr IV.SIG Q6H PRN Rx# :[id number] Oral 240 / 240 240 / 240 Anesthesia Amount 900 / 900 Output: Urine 425 / 425 Estimated Blood Loss 10 / 10 Urine Amount (Catheter) 850 / 850 Condom 850 / 850 Other: Date of Last Bowel Movement 11/01/17 # Bowel Movements 0 0 Narrative: Bilateral lower extremities are within splints no strikethrough bandage noted left or right Right lower extremity takedown of bandage reveals fracture blister of the dorsal distal foot with intact incisional wound VAC good range of motion of digits soft tissue appears to be edematous however no signs of ischemia good alignment of right foot. Left lower extremity good range of motion of digits sensation intact splint intact. Medications and Allergies Active Medications: Active Medications Al Hydroxide/Mg Hydroxide (Milk Of Magnesia Liq) 30 ml PO Q12H PRN PRN Reason: Mild Constipation Albuterol (Duoneb Neb (Prn)) 1 ampul NEB Q2HR NEB PRN PRN Reason: SHORTNESS OF BREATH/WHEEZING Bisacodyl (Dulcolax Supp) 10 mg RECTAL DAILY PRN PRN Reason: SEVERE CONSITIPATION Dextrose (D50w Vial) 50 ml IV.PUSH UNSCH PRN PRN Reason: PER HYPOGLYCEMIA PROTOCOL Diphenhydramine HCl (Benadryl) 25 mg PO Q6H PRN PRN Reason: ITCHING Famotidine (Pepcid Pf Inj) 10 mg IV.PUSH Q12HR [facility] Last Admin: 11/02/17 20:10 Dose: 10 mg Ferrous Sulfate (Ferosul) 325 mg PO DAILY [facility] Last Admin: 11/02/17 08:34 Dose: Not Given Gabapentin (Neurontin) 300 mg PO TID [facility] Last Admin: 11/02/17 17:48 Dose: 300 mg Glucagon (Glucagon Inj) 1 mg OTHER PRN PRN PRN Reason: for Hypoglycemia Protocol Heparin Sodium (Porcine) (Heparin Inj) 5,000 units SQ Q8H [facility] Last Admin: 11/03/17 06:00 Dose: Not Given Cefazolin Sodium 1,000 mg/ (Sodium Chloride) 100 mls @ 200 mls/hr IV.SIG SENIOR HEALTH EDUCATOR [facility] Sodium Chloride (Ns Inj) 1,000 mls @ 84 mls/hr IV.CONT .[id number] [facility] Last Infusion: 11/03/17 04:06 Dose: 0 mls/hr Acetaminophen (Ofirmev Inj) 1,000 mg in 100 mls @ 400 mls/hr IV.SIG Q6H PRN PRN Reason: PAIN SCALE 1 TO 10 Last Infusion: 11/03/17 03:10 Dose: Infused Insulin Human Regular (Novolin R Correctional Sugar Inj) 0 units SQ ACHS [facility]; Protocol Last Admin: 11/02/17 21:08 Dose: 3 units Lactulose (Lactulose Liq) 30 ml PO DAILY PRN PRN Reason: SEVERE CONSITIPATION Losartan Potassium (Cozaar) 100 mg PO DAILY [facility] Last Admin: 11/02/17 08:33 Dose: 100 mg Metoprolol Tartrate (Lopressor) 25 mg PO Q12HR [facility] Last Admin: 11/01/17 08:41 Dose: 25 mg Miscellaneous Information ([facility]) 1 each OTHER UNSCH PRN PRN Reason: SEE LABEL COMMENTS Stop: 11/03/17 12:26 Naloxone HCl (Narcan Inj) 0.4 mg IV.PUSH UNSCH PRN PRN Reason: SEE LABEL COMMENTS Ondansetron HCl (Zofran Inj) 4 mg IV.PUSH Q6H PRN PRN Reason: NAUSEA OR VOMITING Polyethylene Glycol (Miralax) 17 gm PO DAILY [facility] Pravastatin Sodium (Pravachol) 80 mg PO [facility] Last Admin: 11/02/17 20:10 Dose: 80 mg Senna/Docusate Sodium (Debora-Colace) 1 tab PO BID [facility] Last Admin: 11/02/17 20:10 Dose: 1 tab Sennosides (Senokot) 17.2 mg PO Q12H PRN PRN Reason: Moderate Constipation Allergies Allergy/AdvReac Type Severity Reaction Status Date / Time No Known Allergies Allergy Unverified 10/31/17 12:59 Home Medications Medication Instructions Recorded Confirmed Type Aleve 220 mg PO 10/31/17 History ferrous sulfate 325 mg PO DAILY 10/31/17 10/31/17 History losartan 100 mg PO DAILY 10/31/17 10/31/17 History metformin 1,000 mg PO BID 10/31/17 10/31/17 History metoprolol tartrate 25 mg PO Q12HR 10/31/17 10/31/17 History simvastatin 40 mg PO HS 10/31/17 10/31/17 History Results - Labs CBC & Chem 7: 11/03/17 05:37 11/03/17 05:37 Laboratory Results - last 24 hr 11/02/17 11/02/17 11/02/17 08:52 13:03 17:52 WBC RBC Hgb Hct MCV MCH MCHC RDW Plt Count MPV Neut % (Auto) Lymph % (Auto) Barnes % (Auto) Eos % (Auto) Baso % (Auto) Neut # (Auto) Lymph # (Auto) Barnes # (Auto) Eos # (Auto) Baso # (Auto) WBC Differential Differential Comment Sodium Potassium Chloride Carbon Dioxide Anion Gap BUN Creatinine Estimated GFR POC Glucose 147 H 141 H 132 H Random Glucose Calcium 11/02/17 11/03/17 11/03/17 21:02 05:37 05:37 WBC 8.8 RBC 3.52 L Hgb 8.6 L Hct 25.3 L MCV 72.0 L MCH 24.3 L MCHC 33.7 RDW 18.9 H Plt Count 147 L MPV 8.7 Neut % (Auto) 68.9 Lymph % (Auto) 17.5 Barnes % (Auto) 9.2 H Eos % (Auto) 4.1 H Baso % (Auto) 0.3 Neut # (Auto) 6.1 Lymph # (Auto) 1.5 Barnes # (Auto) 0.8 Eos # (Auto) 0.4 Baso # (Auto) 0.0 WBC Differential . Differential Comment Auto diff final Sodium 144 Potassium 3.9 Chloride 112 H Carbon Dioxide 24.8 Anion Gap 7 BUN 18 Creatinine 1.29 Estimated GFR 53 L POC Glucose 229 H Random Glucose 129 H Calcium 8.1 L - Imaging Impressions Ankle X-Ray 11/02/17 00:00 CONCLUSION: Spot fluoroscopic images obtained during medial malleolus ORIF. Ankle X-Ray 11/02/17 00:00 CONCLUSION: 1. Midfoot ORIF, as above. 2. No acute ankle fracture or dislocation. Foot X-Ray 11/02/17 00:00 CONCLUSION: Spot fluoroscopic images obtained during right foot ORIF, as above. Foot X-Ray 11/02/17 12:46 CONCLUSION: Improved alignment following ORIF of the right foot, as above. Assessment and Plan - Assessment (1) Lisfranc fracture Status: Acute (2) Ankle fracture Code(s): S82.899A - Other fracture of unspecified lower leg, initial encounter for closed fracture Status: Acute - Plan Plan for takedown of bilateral dressings tomorrow to evaluate wounds. Continue bed rest, pain control, and all questions answered as best to my knowledge regarding rehab placement and once the patient stabilizes. Procedures: Status post ORIF right foot and ORIF left ankle per Dr. Boudreaux 11/02
[2017-11-03] MEDS: Insulin NovoLIN Regular Correctional Sugar Inj SQ SCH ×4 (09:03→21:40)
[2017-11-03] MEDS: Gabapentin 300 MG Capsule PO SCH ×3 (10:22→21:18)
[2017-11-03] MEDS: Famotidine PF Inj 20 MG/2 ML Vial IV.PUSH SCH ×2 (10:22→21:18)
[2017-11-03] MEDS: Polyethylene Glycol 3350 17 GM Packet PO SCH (10:22)
[2017-11-03] MEDS: Ferrous Sulfate 325 MG Tablet PO SCH (10:22)
[2017-11-03] MEDS: Senna/Docusate Sodium 8.6/50 MG Tablet PO SCH ×2 (10:23→21:18)
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
--- NOTE | 2017-11-03 15:54 | CT ---
EXAM DATE: 11/03/2017 3:40 PM EDT AGE/SEX: 87 years / Male INDICATIONS: New on set of slurred speech CLINICAL DATA: This is the patient's initial encounter. Patient reports that signs and symptoms have been present for 1 day and indicates a pain score of 0/10. MEDICAL/SURGICAL HISTORY: Diabetes. Hypertension. neuropathy . Orthopedic RADIATION DOSE: 34.46 CTDI (mGy) COMPARISON: [facility] [place], [place] HEAD W/O CONTRAST, 10/31/2017. . TECHNIQUE: CT of the head without contrast. Using automated exposure control and adjustment of the mA and/or kV according to patient size, radiation dose was kept as low as reasonably achievable to ob tain optimal diagnostic quality images. DICOM format image data is available electronically for revi ew and comparison. FINDINGS: There is no evidence of acute cortical infarction, acute hemorrhage, mass effect or midline shift. Th ere is asymmetric widening of the extra-axial space in the right frontal region compared to the left which may measuring 1 cm on the right which may reflect subdural hygroma. There has been no significa nt change when compared to the prior exam. Bifrontal atrophy is present. Posterior fossa structures a re unremarkable. There is benign-appearing mucosal disease in the left maxillary sinus and the nasa l cavity on the left.. CONCLUSION: No evidence of acute intracranial pathology. No masses are identified. 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 . Electronically signed by: Mike Wilcox MD 11/03/2017 3:52 PM EDT
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
[2017-11-04] MEDS: Heparin - SQ 10,000 UNITS/ML Vial SQ SCH ×3 (03:23→20:59)
[2017-11-04 04:24] LABS: Baso % (Auto) 0.4 % (0.0-2.0); Eos # (Auto) 0.2 th/mm3 (0.0-0.4); Eos % (Auto) 2.8 % (0.0-4.0); Hematocrit 25.7 % (39.0-51.0); Hemoglobin 8.4 gm/dL (13.0-17.0); Lymph # (Auto) 1.7 th/mm3 (1.0-4.8); Lymph % (Auto) 20.4 % (9.0-44.0); Mean Corpuscular HGB Conc 32.6 % (32.0-36.0); Mean Corpuscular Hemoglobin 23.8 pg (27.0-34.0); Mean Corpuscular Volume 73.1 fL (80.0-100.0); Mean Platelet Volume 8.6 fL (7.0-11.0); Mono # (Auto) 0.8 th/mm3 (0.0-0.9); Neut # (Auto) 5.5 th/mm3 (1.8-7.7); Neut % (Auto) 66.4 % (16.0-70.0); Platelet Count 149 th/mm3 (150-450); Red Blood Count 3.51 mil/mm3 (4.50-5.90); Red Cell Distribution Width 19.5 % (11.6-17.2); White Blood Count 8.2 th/mm3 (4.0-11.0)
[2017-11-04 04:42] LABS: Calcium 8.1 mg/dL (8.5-10.1); Carbon Dioxide 24.7 meq/L (21.0-32.0); Potassium 3.8 meq/L (3.5-5.1)
[2017-11-04] MEDS: Polyethylene Glycol 3350 17 GM Packet PO SCH (08:35)
[2017-11-04] MEDS: Famotidine PF Inj 20 MG/2 ML Vial IV.PUSH SCH ×2 (08:35→20:59)
[2017-11-04] MEDS: Ferrous Sulfate 325 MG Tablet PO SCH (08:36)
[2017-11-04] MEDS: Gabapentin 300 MG Capsule PO SCH ×3 (08:36→17:53)
[2017-11-04] MEDS: Senna/Docusate Sodium 8.6/50 MG Tablet PO SCH ×2 (08:36→20:58)
[2017-11-04] MEDS: Insulin NovoLIN Regular Correctional Sugar Inj SQ SCH ×4 (09:12→21:06)
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
[2017-11-04] MEDS: Sod Chloride 0.9% Inj 1,000 ML IV.CONT SCH (11:07)
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
[2017-11-04] MEDS ORDERED: Acetaminophen 325 MG Tablet PO PRN (16:00)
--- NOTE | 2017-11-04 17:48 | P.PNPOD ---
Subjective Interval history: Patient is having decreasing right foot pain feeling better Physical Exam Vital signs: Vital Signs 11/03/17 20:00 11/03/17 23:03 11/04/17 00:00 Temperature 98.5 F 98.4 F Pulse Rate 94 H 88 Respiratory Rate 29 H 20 Blood Pressure 175/79 H 160/71 H Pulse Oximetry 95 97 96 11/04/17 04:00 11/04/17 06:38 11/04/17 07:42 Temperature 98.3 F Pulse Rate 88 Respiratory Rate 22 27 H Blood Pressure 159/72 H Pulse Oximetry 91 L 92 L 11/04/17 08:00 11/04/17 09:00 11/04/17 12:00 Temperature 97.2 F L 98.0 F Pulse Rate 76 76 78 Respiratory Rate 22 Blood Pressure 142/66 H 193/79 H Pulse Oximetry 100 94 L 11/04/17 16:00 Temperature 98.8 F Pulse Rate 83 Respiratory Rate 22 Blood Pressure 174/84 H Pulse Oximetry 94 L Intake & Output 11/03/17 11/04/17 11/04/17 18:59 06:59 18:59 Intake Total 1110 / 1110 1250 / 1250 950 / 950 Balance 1110 / 1110 1250 / 1250 950 / 950 Weight 84.7 kg Intake: IV 750 / 750 1050 / 1050 950 / 950 NS Inj 1,000 ML @ 84 mls/hr IV. 300 / 300 950 / 950 950 / 950 CONT .[id number] [facility] Rx#:[id number] Ofirmev Inj 1,000 mg In 100 ml 100 / 100 100 / 100 @ 400 mls/hr IV.SIG Q6H PRN Rx# :[id number] Oral 360 / 360 200 / 200 Other: # Voids 5 6 Date of Last Bowel Movement 11/01/17 11/01/17 11/01/17 # Bowel Movements 0 Narrative: Bilateral lower extremities are within splints no strikethrough bandage noted left or right Right lower extremity dorsal foot incision over second metatarsal wound edges well coapted with sutures intact no ischemic changes moderate edema partial rupture of honey colored serous fluid bullae noted, good motion of digits soft tissue appears to be edematous however no signs of ischemia good alignment of right foot. Left lower extremity good range of motion of digits sensation, no strikethrough on bandage left lower extremity splint intact Medications and Allergies Active Medications: Active Medications Acetaminophen (Tylenol) 650 mg PO Q4H PRN PRN Reason: Pain scale 1-10 Al Hydroxide/Mg Hydroxide (Milk Of Magnesia Liq) 30 ml PO Q12H PRN PRN Reason: Mild Constipation Albuterol (Duoneb Neb (Prn)) 1 ampul NEB Q2HR NEB PRN PRN Reason: SHORTNESS OF BREATH/WHEEZING Bisacodyl (Dulcolax Supp) 10 mg RECTAL DAILY PRN PRN Reason: SEVERE CONSITIPATION Clonidine HCl (Catapress-Tts 0.1 Mg Patch.7d) 1 patch T-DERMAL Q7D [facility] Last Admin: 11/04/17 11:40 Dose: 1 patch Dextrose (D50w Vial) 50 ml IV.PUSH UNSCH PRN PRN Reason: PER HYPOGLYCEMIA PROTOCOL Diphenhydramine HCl (Benadryl) 25 mg PO Q6H PRN PRN Reason: ITCHING Enalaprilat (Vasotec Inj) 1.25 mg IV.PUSH Q6H PRN PRN Reason: SBP>180, DBP>95 Last Admin: 11/04/17 15:59 Dose: 1.25 mg Famotidine (Pepcid Pf Inj) 10 mg IV.PUSH Q12HR [facility] Last Admin: 11/04/17 08:35 Dose: 10 mg Ferrous Sulfate (Ferosul) 325 mg PO DAILY [facility] Last Admin: 11/04/17 08:36 Dose: 325 mg Gabapentin (Neurontin) 300 mg PO TID [facility] Last Admin: 11/04/17 12:00 Dose: 300 mg Glucagon (Glucagon Inj) 1 mg OTHER PRN PRN PRN Reason: for Hypoglycemia Protocol Heparin Sodium (Porcine) (Heparin Inj) 5,000 units SQ Q8H [facility] Last Admin: 11/04/17 11:56 Dose: 5,000 units Cefazolin Sodium 1,000 mg/ (Sodium Chloride) 100 mls @ 200 mls/hr 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 [facility] Insulin Human Regular (Novolin R Correctional Sugar Inj) 0 units SQ ACHS [facility]; Protocol Last Admin: 11/04/17 11:55 Dose: 3 units Lactulose (Lactulose Liq) 30 ml PO DAILY PRN PRN Reason: SEVERE CONSITIPATION Losartan Potassium (Cozaar) 100 mg PO DAILY [facility] Last Admin: 11/04/17 08:35 Dose: 100 mg Metoprolol Tartrate (Lopressor) 25 mg PO Q12HR [facility] Last Admin: 11/01/17 08:41 Dose: 25 mg Naloxone HCl (Narcan Inj) 0.4 mg IV.PUSH UNSCH PRN PRN Reason: SEE LABEL COMMENTS Ondansetron HCl (Zofran Inj) 4 mg IV.PUSH Q6H PRN PRN Reason: NAUSEA OR VOMITING Patch Removal (Remove Old Patch) 1 each T-DERMAL Q7D [facility] Polyethylene Glycol (Miralax) 17 gm PO DAILY [facility] Last Admin: 11/04/17 08:35 Dose: 17 gm Pravastatin Sodium (Pravachol) 80 mg PO [facility] Last Admin: 11/03/17 21:18 Dose: 80 mg Senna/Docusate Sodium (Debora-Colace) 1 tab PO BID [facility] Last Admin: 11/04/17 08:36 Dose: 1 tab Sennosides (Senokot) 17.2 mg PO Q12H PRN PRN Reason: Moderate Constipation Allergies Allergy/AdvReac Type Severity Reaction Status Date / Time No Known Allergies Allergy Unverified 10/31/17 12:59 Home Medications Medication Instructions Recorded Confirmed Type Aleve 220 mg PO 10/31/17 History ferrous sulfate 325 mg PO DAILY 10/31/17 10/31/17 History losartan 100 mg PO DAILY 10/31/17 10/31/17 History metformin 1,000 mg PO BID 10/31/17 10/31/17 History metoprolol tartrate 25 mg PO Q12HR 10/31/17 10/31/17 History simvastatin 40 mg PO HS 10/31/17 10/31/17 History Results - Labs CBC & Chem 7: 11/04/17 03:56 11/04/17 03:56 Laboratory Results - last 24 hr 11/03/17 11/03/17 11/04/17 18:46 21:25 03:56 WBC 8.2 RBC 3.51 L Hgb 8.4 L Hct 25.7 L MCV 73.1 L MCH 23.8 L MCHC 32.6 RDW 19.5 H Plt Count 149 L MPV 8.6 Neut % (Auto) 66.4 Lymph % (Auto) 20.4 [place] % (Auto) 10.0 H Eos % (Auto) 2.8 Baso % (Auto) 0.4 Neut # (Auto) 5.5 Lymph # (Auto) 1.7 [place] # (Auto) 0.8 Eos # (Auto) 0.2 Baso # (Auto) 0.0 WBC Differential . Differential Comment Auto diff final Sodium Potassium Chloride Carbon Dioxide Anion Gap BUN Creatinine Estimated GFR POC Glucose 108 201 H Random Glucose Calcium 11/04/17 11/04/17 11/04/17 03:56 11:46 17:13 WBC RBC Hgb Hct MCV MCH MCHC RDW Plt Count MPV Neut % (Auto) Lymph % (Auto) [place] % (Auto) Eos % (Auto) Baso % (Auto) Neut # (Auto) Lymph # (Auto) [place] # (Auto) Eos # (Auto) Baso # (Auto) WBC Differential Differential Comment Sodium 144 Potassium 3.8 Chloride 113 H Carbon Dioxide 24.7 Anion Gap 6 BUN 13 Creatinine 1.13 Estimated GFR 62 L POC Glucose 236 H 187 H Random Glucose 132 H Calcium 8.1 L Assessment and Plan - Assessment (1) Lisfranc fracture Status: Acute (2) Ankle fracture Code(s): S82.899A - Other fracture of unspecified lower leg, initial encounter for closed fracture Status: Acute - Plan Right foot bandage changed we decided to discontinue incision wound VAC, Betadine swab to incision, Xeroform placed over the dorsum of the foot, well- padded compressive bandage and posterior splint reapplied. The patient is still nonweightbearing of the bilateral extremities however okay for out of bed to chair and/or wheelchair. Plan for wound reevaluation or Friday by Dr. Flores. Procedures: Status post ORIF right foot and ORIF left ankle per Dr. Boudreaux 11/02
[2017-11-05] MEDS: Heparin - SQ 10,000 UNITS/ML Vial SQ SCH ×3 (04:45→21:48)
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
[2017-11-05] MEDS ORDERED: Ketorolac Inj 30 MG/ML (IVP) Vial IV.PUSH PRN (08:26)
[2017-11-05] MEDS: Ferrous Sulfate 325 MG Tablet PO SCH (10:07)
[2017-11-05] MEDS: Gabapentin 300 MG Capsule PO SCH ×3 (10:07→18:00)
[2017-11-05] MEDS: Famotidine PF Inj 20 MG/2 ML Vial IV.PUSH SCH ×2 (10:08→21:49)
[2017-11-05] MEDS: Senna/Docusate Sodium 8.6/50 MG Tablet PO SCH ×2 (10:08→21:49)
[2017-11-05] MEDS: Polyethylene Glycol 3350 17 GM Packet PO SCH (10:12)
[2017-11-05] MEDS: Insulin NovoLIN Regular Correctional Sugar Inj SQ SCH ×4 (10:21→22:07)
[2017-11-05] MEDS ORDERED: Bisacodyl 10 MG Supp RECTAL ONE (13:20)
[2017-11-05] MEDS ORDERED: hydrALAZINE 25 MG Tablet PO ONE (14:02)
--- NOTE | 2017-11-05 15:02 | XR ---
EXAM DATE: 11/05/2017 2:34 PM EDT AGE/SEX: 87 years / Male INDICATIONS: Shortness of breath. CLINICAL DATA: This is the patient's subsequent encounter. Patient reports that signs and symptoms h ave been present for 2 days and indicates a pain score of 0/10. MEDICAL/SURGICAL HISTORY: . Diabetes. Hypertension. Neuropathy . None. COMPARISON: [facility] [place] 1V SINGLE AP, 11/02/2017. . FINDINGS: The heart is enlarged. Moderate stable consolidative changes left base. Right lung clear. No signific ant pleural effusion. No pneumothorax. The portion of the bony skeleton visualized is unremarkable. CONCLUSION: Cardiomegaly with stable parenchymal changes left base. No significant failure. Electronically signed by: Bam Lauren MD 11/05/2017 3:01 PM EDT
[2017-11-05] MEDS ORDERED: Melatonin 5 MG Tablet PO SCH (21:00)
[2017-11-06] MEDS: Heparin - SQ 10,000 UNITS/ML Vial SQ SCH ×2 (05:01→12:20)
[2017-11-06] MEDS: Insulin NovoLIN Regular Correctional Sugar Inj SQ SCH ×2 (07:42→12:20)
[2017-11-06] MEDS ORDERED: Bisacodyl 10 MG Supp RECTAL SCH (09:00)
[2017-11-06] MEDS: Polyethylene Glycol 3350 17 GM Packet PO SCH (09:39)
[2017-11-06] MEDS: Ferrous Sulfate 325 MG Tablet PO SCH (09:39)
[2017-11-06] MEDS: Senna/Docusate Sodium 8.6/50 MG Tablet PO SCH (09:39)
[2017-11-06] MEDS: Gabapentin 300 MG Capsule PO SCH ×2 (09:39→12:20)
[2017-11-06] MEDS: Famotidine PF Inj 20 MG/2 ML Vial IV.PUSH SCH (09:40)
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
== END 2017-11-06 16:42 ==
LOC: NEPC 12:34 → NEDA 15:33 → N06 16:24 → N03 11-01 00:47 → N05 11-04 19:52
PROVIDERS: ADMIT Surgery; ATTEND Surgery
PROC: ORIFANK (2017-11-02 09:37)